=== PATIENT | male | born 1940 | race Caucasian/White ===

== ENCOUNTER 2018-09-18 02:33 | Inpatient (IN) | payer OTHER ==
[2018-09-18 03:06] LABS: ADD MAN DIFF? NO
[2018-09-18 03:07] LABS: BASOPHIL # 0.1 10^3/ul (0.0-0.1); BASOPHILS % 0.3 % (0.0-2.0); EOSINOPHILS # 0.2 10^3/ul (0.0-0.5); EOSINOPHILS % 1.1 % (0.0-7.0); HEMATOCRIT 36.8 % (42.0-52.0); HEMOGLOBIN 12.5 g/dl (14.0-18.0); LYMPHOCYTES # 0.9 10^3/ul (0.8-2.9); LYMPHOCYTES % 6.1 % (15.0-51.0); MEAN CORPUSCULAR HEMOGLOBIN 31.9 pg (29.0-33.0); MEAN CORPUSCULAR VOLUME 93.9 fl (82.0-101.0); MEAN PLATELET VOLUME 9.4 fl (7.4-10.4); MONOCYTE # 0.8 10^3/ul (0.3-0.9); MONOCYTES % 5.7 % (0.0-11.0); NEUTROPHIL # 12.8 10^3/ul (1.6-7.5); NEUTROPHILS % 86.3 % (39.0-77.0); PLATELET COUNT 252 10^3/UL (140-415); RED BLOOD COUNT 3.92 10^6/ul (4.70-6.10); RED CELL DISTRIBUTION WIDTH 13.5 % (11.5-14.5)
[2018-09-18 03:07] LABS: WHITE BLOOD COUNT 14.8 10^3/ul (4.8-10.8)
[2018-09-18 03:26] LABS: ALANINE AMINOTRANSFERASE 33 IU/L (13-69); ALBUMIN 4.1 g/dl (3.3-4.9); ALBUMIN/GLOBULIN RATIO 1.51; ALKALINE PHOSPHATASE 79 IU/L (42-121); ANION GAP 11 (5-13); ASPARTATE AMINO TRANSFERASE 29 IU/L (15-46); BLOOD UREA NITROGEN 19 mg/dl (7-20); CALCIUM 9.3 mg/dl (8.4-10.2); CARBON DIOXIDE 27 mmol/L (21-31); CHLORIDE 103 mmol/L (97-110); CREATININE 1.03 mg/dl (0.61-1.24); GLUCOSE 147 mg/dl (70-220); POTASSIUM 3.9 mmol/L (3.5-5.1); SODIUM 141 mmol/L (135-144); TOTAL PROTEIN 6.8 g/dl (6.1-8.1)
[2018-09-18 03:27] LABS: ETHANOL < 10.0 mg/dl (0-0)
[2018-09-18 03:31] LABS: PROTIME 13.3 Sec (11.9-14.9)
[2018-09-18 03:32] LABS: PARTIAL THROMBOPLASTIN TIME 46.5 Sec (23.0-35.0)
[2018-09-18 03:36] LABS: TROPONIN-I < 0.012 ng/ml (0.000-0.120)
[2018-09-18 04:03] LABS: FREE THYROXINE INDEX (Calc) 2.52 ug/ml (0.65-3.89); T3 UPTAKE 37.1 % (23.5-40.5); T4 (THYROXINE) 6.8 ug/dl (5.5-11.0)
[2018-09-18 04:04] LABS: ADD UMIC YES; UR ASCORBIC ACID NEGATIVE (NEGATIVE); UR BILIRUBIN (Dip) NEGATIVE (NEGATIVE); UR BLOOD (Dip) 1+ mg/dL (NEGATIVE); UR CLARITY CLEAR (CLEAR); UR COLOR STRAW (YELLOW); UR GLUCOSE (Dip) NEGATIVE (NEGATIVE); UR KETONES (Dip) TRACE mg/dL (NEGATIVE); UR LEUKOCYTE ESTERASE (Dip) NEGATIVE Leu/ul (NEGATIVE); UR NITRITE (Dip) NEGATIVE (NEGATIVE); UR RBC 8 /HPF (0-5); UR SPECIFIC GRAVITY (Dip) 1.009 (1.003-1.030); UR TOTAL PROTEIN (Dip) NEGATIVE (NEGATIVE); UR UROBILINOGEN (Dip) NEGATIVE (NEGATIVE); UR WBC 2 /HPF (0-5)
[2018-09-18 04:15] LABS: AMPHETAMINE/METHAMPHETAMINE Negative (NEGATIVE); BARBITURATES Negative (NEGATIVE); BENZODIAZEPINES Negative (NEGATIVE); CANNABINOIDS Negative (NEGATIVE); COCAINE Negative (NEGATIVE); OPIATES Negative (NEGATIVE)
[2018-09-18] MEDS: niCARdipine-NS 0.1MG/ML DRIP 200 ML IV ×2 (04:29→13:02)
[2018-09-18] MEDS ORDERED: SOD CHLORIDE 0.9% 1,000 ML IV (04:31)
[2018-09-18 04:54] LABS: CHOL/HDL RATIO 2.2 RATIO; HDL CHOLESTEROL 55 mg/dl (31-75); LDL CHOLESTEROL,CALCULATED 59 mg/dl; TRIGLYCERIDES 55 mg/dl (0-149)
[2018-09-18 04:54] LABS: CHOLESTEROL 125 mg/dl (100-200)
[2018-09-18 04:57] LABS: HEMOGLOBIN A1C 5.2 % (0-5.9)
[2018-09-18] MEDS ORDERED: DOCUSATE SODIUM 100 MG CAP PO (05:00)
[2018-09-18] MEDS ORDERED: IPRATROPIUM (NEB) 0.5 MG/2.5 ML AMP NEB (05:00)
[2018-09-18] MEDS ORDERED: ONDANSETRON 4 MG INJ IV ×2 (05:00→08:00)
[2018-09-18] MEDS ORDERED: ALBUTEROL 0.083% (NEB) 2.5 MG/3 ML AMP NEB (05:00)
[2018-09-18] MEDS ORDERED: BISACODYL (EC) 5 MG TAB PO (05:00)
[2018-09-18] MEDS ORDERED: ACETAMINOPHEN 650MG/20.3ML CUP PO (05:00)
[2018-09-18] MEDS: ROCURONIUM BROMIDE 10 MG/ML VIAL IV (06:58)
[2018-09-18] MEDS: ETOMIDATE 20 MG INJ IV (06:58)
[2018-09-18] MEDS ORDERED: MANNITOL 25% 50 ML INJ IV* ×3 (07:00→07:30)
[2018-09-18] MEDS ORDERED: ROCURONIUM 50 MG INJ ×3 (07:00→09:07)
[2018-09-18] MEDS: niCARdipine 25 MG in SOD CHLORIDE 0.9% 240 ML IV ×4 (07:16→18:44)
[2018-09-18] MEDS: MANNITOL 20% 250 ML IV (07:16)
[2018-09-18] MEDS: LIDOCAINE 1%/EPI 30 ML INJ ×2 (07:43→09:11)
[2018-09-18] MEDS: THROMBIN 5000 UNIT VIAL (07:43)
[2018-09-18] MEDS: GELATIN SIZE 100 SPONGE (07:43)
[2018-09-18] MEDS: POLYMYXIN/BACITRACIN 1L IRRIG (07:43)
[2018-09-18] MEDS ORDERED: IPRATROPIUM (NEB) 0.5 MG/2.5 ML AMP HHN (08:00)
[2018-09-18] MEDS ORDERED: MIDAZOLAM 1 MG/ML 2 ML INJ IV (08:00)
[2018-09-18] MEDS ORDERED: HYDROmorphONE 0.5 MG/0.5 ML SYG IV ×3 (08:00)
[2018-09-18] MEDS ORDERED: LORAZEPAM 2 MG INJ IV (08:00)
[2018-09-18] MEDS ORDERED: LABETALOL HCL 20MG INJ IV (08:00)
[2018-09-18] MEDS ORDERED: FENTAnyl 50 MCG/ML VIAL IV ×2 (08:00)
[2018-09-18] MEDS ORDERED: hydrALAzine 20 MG INJ IV (08:00)
[2018-09-18] MEDS ORDERED: LEVALBUTEROL (NEB) 1.25 MG/0.5 ML AMP HHN (08:00)
[2018-09-18] MEDS ORDERED: DIPHENHYDRAMINE 50 MG INJ IV (08:00)
[2018-09-18 09:05] LABS: IMMEDIATE SPIN CROSSMATCH 1
[2018-09-18] MEDS ORDERED: PHENYLephrine (100 MCG/ML) 5ML SYG (09:13)
[2018-09-18 09:16] LABS: IMMEDIATE SPIN CROSSMATCH 1 4
[2018-09-18] MEDS ORDERED: DILTIAZEM-D5W 125MG/125ML DRIP 125 ML IV (09:30)
[2018-09-18] MEDS ORDERED: CEFAZOLIN 1 GM INJ (09:47)
[2018-09-18 10:29] LABS: TYPE AND SCREEN 1
[2018-09-18] MEDS ORDERED: BACITRACIN/POLYMYXIN 28.35 GM OINT TOP (11:25)
[2018-09-18] MEDS ORDERED: HYDROCODONE/APAP (5/325) TAB PO (12:30)
[2018-09-18] MEDS ORDERED: NALOXONE (0.4 MG/ML) INJ IV (12:30)
[2018-09-18 13:44] LABS: ADD MAN DIFF? NO
[2018-09-18 13:49] LABS: BASOPHILS % 0.2 % (0.0-2.0); HEMATOCRIT 32.9 % (42.0-52.0); HEMOGLOBIN 11.2 g/dl (14.0-18.0); LYMPHOCYTES % 5.8 % (15.0-51.0); MEAN PLATELET VOLUME 9.6 fl (7.4-10.4); MONOCYTE # 1.4 10^3/ul (0.3-0.9); MONOCYTES % 8.1 % (0.0-11.0); NEUTROPHIL # 14.8 10^3/ul (1.6-7.5); NEUTROPHILS % 85.4 % (39.0-77.0); PLATELET COUNT 257 10^3/UL (140-415); RED CELL DISTRIBUTION WIDTH 13.8 % (11.5-14.5)
[2018-09-18 13:49] LABS: WHITE BLOOD COUNT 17.3 10^3/ul (4.8-10.8)
[2018-09-18] MEDS: PANTOPRAZOLE 40 MG INJ IV (13:58)
[2018-09-18] MEDS: CEFAZOLIN 1 GM/50 ML (PMX) 50 ML IVPB ×2 (13:59→20:31)
[2018-09-18] MEDS: NEOMYC/POLYMYX/BACIT 30 GM OINT TOP ×2 (14:00→20:32)
[2018-09-18] MEDS: ARTIFICIAL TEARS 15 ML OPH BOTH EYES ×3 (14:00→20:31)
[2018-09-18] MEDS: OCULAR LUBRICANT 3.5 GM OPH OINT BOTH EYES ×2 (14:00→17:08)
[2018-09-18] MEDS: SOD CHLORIDE 0.9% 1,000 ML IV (14:01)
[2018-09-18 14:06] LABS: INR 1.04; PROTIME 13.7 Sec (11.9-14.9); PT RATIO 1.1
[2018-09-18 14:07] LABS: PARTIAL THROMBOPLASTIN TIME 36.5 Sec (23.0-35.0)
[2018-09-18 14:19] LABS: ANION GAP 7 (5-13); BLOOD UREA NITROGEN 18 mg/dl (7-20); CALCIUM 9.4 mg/dl (8.4-10.2); CARBON DIOXIDE 26 mmol/L (21-31); CHLORIDE 106 mmol/L (97-110); CREATININE 0.88 mg/dl (0.61-1.24); GLUCOSE 168 mg/dl (70-220); POTASSIUM 4.2 mmol/L (3.5-5.1); SODIUM 139 mmol/L (135-144)
[2018-09-18 16:00] LABS: AADO2 Arterial 161.2 mmHg (7.0-24.0); Arterial Base Excess -3.7 mmol/L (-3.0-3); Arterial Blood Gas Oxygen Sat 98.4 mmHG (95.0-100.0); Arterial COHb 0.3 % (0.0-3.0); Arterial HCO3 20.4 mmol/L (22.0-26.0); Arterial MetHb 0.1 % (0.0-1.5); Arterial pCO2 33.3 mmhg (35-45); Site A-Line
[2018-09-18 16:04] LABS: MODE VENT - AC
[2018-09-18] MEDS ORDERED: PROPOFOL 100 ML (16:36)
[2018-09-18] MEDS: PROPOFOL 100 ML IV (16:42)
[2018-09-18] MEDS: NACL 3% 150 ML IV (17:15)
[2018-09-18] MEDS: NACL 3% 500 ML IV ×3 (17:38→21:31)
[2018-09-18 19:14] LABS: ANION GAP 8 (5-13); BLOOD UREA NITROGEN 20 mg/dl (7-20); CALCIUM 8.7 mg/dl (8.4-10.2); CARBON DIOXIDE 24 mmol/L (21-31); CHLORIDE 111 mmol/L (97-110); CREATININE 0.99 mg/dl (0.61-1.24); GLUCOSE 126 mg/dl (70-220); POTASSIUM 3.6 mmol/L (3.5-5.1); SODIUM 143 mmol/L (135-144)
[2018-09-18] MEDS ORDERED: NACL 3% 500 ML IV (20:30)
[2018-09-18] MEDS: LEVETIRACETAM 500 MG (PMX) 100 ML IVPB (20:30)
[2018-09-18] MEDS: ACETAMINOPHEN 1000MG/100ML IV 100 ML IVPB (20:31)
[2018-09-19] MEDS: OCULAR LUBRICANT 3.5 GM OPH OINT BOTH EYES ×5 (00:29→23:08)
[2018-09-19 02:09] LABS: ANION GAP 7 (5-13); BLOOD UREA NITROGEN 21 mg/dl (7-20); CALCIUM 8.8 mg/dl (8.4-10.2); CARBON DIOXIDE 24 mmol/L (21-31); CHLORIDE 115 mmol/L (97-110); CREATININE 0.99 mg/dl (0.61-1.24); GLUCOSE 137 mg/dl (70-220); POTASSIUM 3.5 mmol/L (3.5-5.1); SODIUM 146 mmol/L (135-144)
[2018-09-19] MEDS: NACL 3% 500 ML IV (04:27)
[2018-09-19] MEDS: CEFAZOLIN 1 GM/50 ML (PMX) 50 ML IVPB (04:29)
[2018-09-19] MEDS: PROPOFOL 100 ML IV (04:30)
[2018-09-19] MEDS ORDERED: LORAZEPAM 2 MG INJ IM (05:00)
[2018-09-19 05:01] LABS: ADD MAN DIFF? NO
[2018-09-19 05:03] LABS: WHITE BLOOD COUNT 15.6 10^3/ul (4.8-10.8)
[2018-09-19 05:03] LABS: ABNORMAL IP MESSAGE 1; BASOPHILS % 0.2 % (0.0-2.0); HEMATOCRIT 29.2 % (42.0-52.0); HEMOGLOBIN 9.9 g/dl (14.0-18.0); LYMPHOCYTES # 0.7 10^3/ul (0.8-2.9); LYMPHOCYTES % 4.5 % (15.0-51.0); MEAN CORPUSCULAR HEMOGLOBIN 31.8 pg (29.0-33.0); MEAN CORPUSCULAR HGB CONC 33.9 g/dl (32.0-37.0); MEAN CORPUSCULAR VOLUME 93.9 fl (82.0-101.0); MEAN PLATELET VOLUME 10.2 fl (7.4-10.4); MONOCYTE # 1.5 10^3/ul (0.3-0.9); MONOCYTES % 9.8 % (0.0-11.0); NEUTROPHIL # 13.2 10^3/ul (1.6-7.5); PLATELET COUNT 245 10^3/UL (140-415); POSITIVE DIFF @See below; RED BLOOD COUNT 3.11 10^6/ul (4.70-6.10); RED CELL DISTRIBUTION WIDTH 14.7 % (11.5-14.5)
[2018-09-19] MEDS: PANTOPRAZOLE 40 MG INJ IV (05:15)
[2018-09-19 05:41] LABS: ALBUMIN 3.3 g/dl (3.3-4.9); ANION GAP 7 (5-13); BLOOD UREA NITROGEN 19 mg/dl (7-20); CALCIUM 8.9 mg/dl (8.4-10.2); CARBON DIOXIDE 23 mmol/L (21-31); CHLORIDE 121 mmol/L (97-110); CREATININE 0.94 mg/dl (0.61-1.24); GLUCOSE 144 mg/dl (70-220); MAGNESIUM 2.1 mg/dl (1.7-2.5); POTASSIUM 3.6 mmol/L (3.5-5.1); SODIUM 151 mmol/L (135-144)
[2018-09-19] MEDS: niCARdipine 25 MG in SOD CHLORIDE 0.9% 240 ML IV ×5 (07:17→21:26)
[2018-09-19 08:52] LABS: AADO2 Arterial 136.9 mmHg (7.0-24.0); Arterial Base Excess -2.6 mmol/L (-3.0-3); Arterial Blood Gas Oxygen Sat 97.8 mmHG (95.0-100.0); Arterial COHb 0.4 % (0.0-3.0); Arterial Fraction of Oxyhgb 96.5 % (93.0-99.0); Arterial HCO3 19.9 mmol/L (22.0-26.0); Arterial MetHb 0.9 % (0.0-1.5); Arterial pCO2 28.4 mmhg (35-45); MODE VENT - AC; Site A-Line
[2018-09-19] MEDS ORDERED: FENTAnyl (DRIP) 1000 mcg/100mL 100 ML IV (10:00)
[2018-09-19] MEDS: NS + KCL 20 MEQ 1,000 ML IV (10:03)
[2018-09-19] MEDS: LEVETIRACETAM 500 MG (PMX) 100 ML IVPB ×2 (10:17→20:45)
[2018-09-19] MEDS: POTASSIUM PHOSPHATE 30 MM in SOD CHLORIDE 0.9% 250 ML IVPB (10:23)
[2018-09-19] MEDS: ARTIFICIAL TEARS 15 ML OPH BOTH EYES ×4 (10:32→20:29)
[2018-09-19] MEDS: NEOMYC/POLYMYX/BACIT 30 GM OINT TOP ×3 (10:32→20:29)
[2018-09-19] MEDS: CEFEPIME 1GM/50 ML (PMX) 50 ML IVPB ×2 (11:07→20:29)
[2018-09-19] MEDS: ACETAMINOPHEN 1000MG/100ML IV 100 ML IVPB ×2 (13:33→20:45)
[2018-09-19 13:55] LABS: ANION GAP 8 (5-13); BLOOD UREA NITROGEN 21 mg/dl (7-20); CARBON DIOXIDE 23 mmol/L (21-31); CHLORIDE 119 mmol/L (97-110); CREATININE 0.94 mg/dl (0.61-1.24); GLUCOSE 131 mg/dl (70-220); POTASSIUM 3.6 mmol/L (3.5-5.1); SODIUM 150 mmol/L (135-144)
[2018-09-19 19:36] LABS: ANION GAP 7 (5-13); BLOOD UREA NITROGEN 22 mg/dl (7-20); CALCIUM 8.3 mg/dl (8.4-10.2); CARBON DIOXIDE 21 mmol/L (21-31); CHLORIDE 124 mmol/L (97-110); CREATININE 0.87 mg/dl (0.61-1.24); GLUCOSE 130 mg/dl (70-220); SODIUM 152 mmol/L (135-144)
[2018-09-19 19:41] LABS: POTASSIUM 3.3 mmol/L (3.5-5.1)
[2018-09-19] MEDS: POTASSIUM CHLORIDE 40 MEQ in SOD CHLORIDE 0.45% 1,000 ML IV (23:07)
[2018-09-20] MEDS: niCARdipine 25 MG in SOD CHLORIDE 0.9% 240 ML IV ×6 (00:08→13:01)
[2018-09-20] MEDS: ACETAMINOPHEN 1000MG/100ML IV 100 ML IVPB (02:32)
[2018-09-20 05:19] LABS: ADD MAN DIFF? NO
[2018-09-20 05:26] LABS: WHITE BLOOD COUNT 18.4 10^3/ul (4.8-10.8)
[2018-09-20 05:26] LABS: ABNORMAL IP MESSAGE 1; BASOPHILS % 0.2 % (0.0-2.0); HEMATOCRIT 28.5 % (42.0-52.0); HEMOGLOBIN 9.5 g/dl (14.0-18.0); LYMPHOCYTES % 5.6 % (15.0-51.0); MEAN CORPUSCULAR HEMOGLOBIN 32.1 pg (29.0-33.0); MEAN CORPUSCULAR HGB CONC 33.3 g/dl (32.0-37.0); MEAN CORPUSCULAR VOLUME 96.3 fl (82.0-101.0); MEAN PLATELET VOLUME 10.2 fl (7.4-10.4); MONOCYTE # 1.8 10^3/ul (0.3-0.9); MONOCYTES % 9.8 % (0.0-11.0); NEUTROPHIL # 15.5 10^3/ul (1.6-7.5); PLATELET COUNT 238 10^3/UL (140-415); POSITIVE DIFF @See below; RED BLOOD COUNT 2.96 10^6/ul (4.70-6.10); RED CELL DISTRIBUTION WIDTH 14.7 % (11.5-14.5)
[2018-09-20] MEDS: OCULAR LUBRICANT 3.5 GM OPH OINT BOTH EYES ×4 (05:32→23:58)
[2018-09-20] MEDS: PANTOPRAZOLE 40 MG INJ IV (05:32)
[2018-09-20 05:53] LABS: ANION GAP 6 (5-13); BLOOD UREA NITROGEN 28 mg/dl (7-20); CALCIUM 8.6 mg/dl (8.4-10.2); CARBON DIOXIDE 23 mmol/L (21-31); CHLORIDE 124 mmol/L (97-110); CREATININE 0.94 mg/dl (0.61-1.24); GLUCOSE 134 mg/dl (70-220); POTASSIUM 3.2 mmol/L (3.5-5.1); SODIUM 153 mmol/L (135-144)
[2018-09-20 06:16] LABS: MAGNESIUM 2.3 mg/dl (1.7-2.5)
[2018-09-20 07:19] LABS: AADO2 Arterial 119.1 mmHg (7.0-24.0); Arterial Base Excess -2.6 mmol/L (-3.0-3); Arterial COHb 0.2 % (0.0-3.0); Arterial Fraction of Oxyhgb 97.7 % (93.0-99.0); Arterial HCO3 19.9 mmol/L (22.0-26.0); Arterial MetHb 0.1 % (0.0-1.5); MODE VENT - AC; Site A-Line
[2018-09-20] MEDS: MANNITOL 20% 250 ML IV (07:32)
[2018-09-20] MEDS: LEVETIRACETAM 500 MG (PMX) 100 ML IVPB ×2 (08:16→20:26)
[2018-09-20] MEDS: ARTIFICIAL TEARS 15 ML OPH BOTH EYES ×4 (08:17→19:57)
[2018-09-20] MEDS: NEOMYC/POLYMYX/BACIT 30 GM OINT TOP ×3 (08:17→19:57)
[2018-09-20] MEDS: CEFEPIME 1GM/50 ML (PMX) 50 ML IVPB ×2 (08:17→19:56)
[2018-09-20] MEDS ORDERED: POTASSIUM CHLORIDE 100 ML IVPB (09:30)
[2018-09-20] MEDS: POTASSIUM CHLORIDE 40 MEQ in SOD CHLORIDE 0.45% 1,000 ML IV ×2 (13:01→23:58)
[2018-09-20] MEDS: niCARdipine 50 MG in SOD CHLORIDE 0.9% 480 ML IV ×2 (15:41→20:25)
[2018-09-20] MEDS: HYDROmorphONE 0.5 MG/0.5 ML SYG IV (15:53)
[2018-09-20 19:36] LABS: AADO2 Arterial 139.4 mmHg (7.0-24.0); Arterial Base Excess -4.4 mmol/L (-3.0-3); Arterial Blood Gas Oxygen Sat 98.1 mmHG (95.0-100.0); Arterial COHb 0.3 % (0.0-3.0); Arterial Fraction of Oxyhgb 97.5 % (93.0-99.0); Arterial MetHb 0.3 % (0.0-1.5); Arterial pCO2 23.7 mmhg (35-45); MODE VENT - AC; Site A-Line
[2018-09-20] MEDS: PROPOFOL 100 ML IV (19:56)
[2018-09-20 19:59] LABS: ANION GAP 7 (5-13); BLOOD UREA NITROGEN 30 mg/dl (7-20); CALCIUM 8.4 mg/dl (8.4-10.2); CARBON DIOXIDE 21 mmol/L (21-31); CHLORIDE 125 mmol/L (97-110); CREATININE 0.92 mg/dl (0.61-1.24); GLUCOSE 135 mg/dl (70-220); POTASSIUM 3.2 mmol/L (3.5-5.1); SODIUM 153 mmol/L (135-144)
[2018-09-21] MEDS: POTASSIUM CHLORIDE 40 MEQ in SOD CHLORIDE 0.45% 1,000 ML IV (00:50)
[2018-09-21 00:56] LABS: ANION GAP 6 (5-13); BLOOD UREA NITROGEN 32 mg/dl (7-20); CALCIUM 8.3 mg/dl (8.4-10.2); CARBON DIOXIDE 23 mmol/L (21-31); CHLORIDE 124 mmol/L (97-110); CREATININE 0.95 mg/dl (0.61-1.24); GLUCOSE 130 mg/dl (70-220); POTASSIUM 3.3 mmol/L (3.5-5.1); SODIUM 153 mmol/L (135-144)
[2018-09-21] MEDS: niCARdipine 50 MG in SOD CHLORIDE 0.9% 480 ML IV (01:44)
[2018-09-21] MEDS: PROPOFOL 100 ML IV ×3 (02:37→17:39)
[2018-09-21 05:27] LABS: ADD MAN DIFF? NO
[2018-09-21 05:34] LABS: ABNORMAL IP MESSAGE 1; BASOPHILS % 0.3 % (0.0-2.0); EOSINOPHILS % 0.1 % (0.0-7.0); HEMATOCRIT 26.3 % (42.0-52.0); HEMOGLOBIN 8.6 g/dl (14.0-18.0); LYMPHOCYTES # 1.3 10^3/ul (0.8-2.9); LYMPHOCYTES % 8.2 % (15.0-51.0); MEAN CORPUSCULAR HEMOGLOBIN 31.6 pg (29.0-33.0); MEAN CORPUSCULAR HGB CONC 32.7 g/dl (32.0-37.0); MEAN CORPUSCULAR VOLUME 96.7 fl (82.0-101.0); MEAN PLATELET VOLUME 10.2 fl (7.4-10.4); MONOCYTE # 1.7 10^3/ul (0.3-0.9); MONOCYTES % 10.9 % (0.0-11.0); NEUTROPHIL # 12.2 10^3/ul (1.6-7.5); PLATELET COUNT 210 10^3/UL (140-415); POSITIVE DIFF @See below; RED BLOOD COUNT 2.72 10^6/ul (4.70-6.10); RED CELL DISTRIBUTION WIDTH 14.6 % (11.5-14.5)
[2018-09-21 05:34] LABS: WHITE BLOOD COUNT 15.3 10^3/ul (4.8-10.8)
[2018-09-21 05:37] LABS: LACTIC ACID 1.1 mmol/L (0.5-2.0)
[2018-09-21 05:37] LABS: AMMONIA 12 umol/l (9-30)
[2018-09-21] MEDS: PANTOPRAZOLE 40 MG INJ IV (05:41)
[2018-09-21] MEDS: OCULAR LUBRICANT 3.5 GM OPH OINT BOTH EYES ×3 (05:42→17:07)
[2018-09-21 06:16] LABS: MAGNESIUM 2.5 mg/dl (1.7-2.5)
[2018-09-21 06:20] LABS: ALANINE AMINOTRANSFERASE 40 IU/L (13-69); ALBUMIN 2.7 g/dl (3.3-4.9); ALBUMIN/GLOBULIN RATIO 1.12; ALKALINE PHOSPHATASE 47 IU/L (42-121); ASPARTATE AMINO TRANSFERASE 83 IU/L (15-46); BLOOD UREA NITROGEN 32 mg/dl (7-20); CALCIUM 8.3 mg/dl (8.4-10.2); CARBON DIOXIDE 22 mmol/L (21-31); CREATININE 0.94 mg/dl (0.61-1.24); GLUCOSE 125 mg/dl (70-220); TOTAL PROTEIN 5.1 g/dl (6.1-8.1)
[2018-09-21 07:06] LABS: ANION GAP 7 (5-13); POTASSIUM 3.5 mmol/L (3.5-5.1)
[2018-09-21 07:10] LABS: CHLORIDE 125 mmol/L (97-110); SODIUM 154 mmol/L (135-144)
[2018-09-21 08:02] LABS: AADO2 Arterial 130.2 mmHg (7.0-24.0); Arterial Base Excess -2.2 mmol/L (-3.0-3); Arterial Blood Gas Oxygen Sat 98.1 mmHG (95.0-100.0); Arterial COHb 0.3 % (0.0-3.0); Arterial Fraction of Oxyhgb 97.7 % (93.0-99.0); Arterial HCO3 20.3 mmol/L (22.0-26.0); Arterial MetHb 0.1 % (0.0-1.5); Arterial pCO2 27.5 mmhg (35-45); MODE VENT - AC; Site A-Line
[2018-09-21] MEDS: POTASSIUM CHLORIDE 40 MEQ in DEXTROSE 5%-0.225% NACL 1,000 ML IV (08:26)
[2018-09-21] MEDS: LEVETIRACETAM 500 MG (PMX) 100 ML IVPB (08:46)
[2018-09-21] MEDS: ARTIFICIAL TEARS 15 ML OPH BOTH EYES ×3 (08:51→17:07)
[2018-09-21] MEDS: NEOMYC/POLYMYX/BACIT 30 GM OINT TOP ×2 (08:51→13:00)
[2018-09-21] MEDS: CEFEPIME 1GM/50 ML (PMX) 50 ML IVPB (09:08)
[2018-09-21 12:37] LABS: ANION GAP 6 (5-13); BLOOD UREA NITROGEN 30 mg/dl (7-20); CALCIUM 8.4 mg/dl (8.4-10.2); CARBON DIOXIDE 24 mmol/L (21-31); CHLORIDE 122 mmol/L (97-110); GLUCOSE 126 mg/dl (70-220); POTASSIUM 3.3 mmol/L (3.5-5.1); SODIUM 152 mmol/L (135-144)
[2018-09-21] MEDS: POTASSIUM CHLORIDE 100 ML IVPB ×3 (13:38→18:37)
[2018-09-21 19:06] LABS: ANION GAP 4 (5-13); BLOOD UREA NITROGEN 30 mg/dl (7-20); CALCIUM 8.2 mg/dl (8.4-10.2); CARBON DIOXIDE 25 mmol/L (21-31); CHLORIDE 126 mmol/L (97-110); CREATININE 0.83 mg/dl (0.61-1.24); GLUCOSE 121 mg/dl (70-220); POTASSIUM 3.9 mmol/L (3.5-5.1); SODIUM 155 mmol/L (135-144)
[2018-09-21] MEDS: morphine (DRIP) 100 MG/100 ML 100 ML IV (20:33)
[2018-09-21] MEDS ORDERED: LORAZEPAM 2 MG INJ IV (22:00)
[2018-09-21] MEDS ORDERED: ATROPINE 1% 5 ML OPH SL (22:00)
== END 2018-09-21 22:35 | disposition expired | DRG 25 ==
LOC: E/R 02:33 → ICU 04:26
PROC: 00N00ZZ Release Brain, Open Approach (ICD-10-PCS; principal; 2018-09-18 07:50)
PROC: 009 Central Nervous System and Cranial Nerves, Drainage (ICD-10-PCS; 2018-09-18 07:50)
PROC: 0BH17EZ Insertion of Endotracheal Airway into Trachea, Via Natural or Artificial Opening (ICD-10-PCS; 2018-09-18 07:50)
PROC: 5A1945Z Respiratory Ventilation, 24-96 Consecutive Hours (ICD-10-PCS; 2018-09-18 07:50)
PROC: 30233K1 Transfusion of Nonautologous Frozen Plasma into Peripheral Vein, Percutaneous Approach (ICD-10-PCS; 2018-09-18 07:50)
PROC: 30233N1 Transfusion of Nonautologous Red Blood Cells into Peripheral Vein, Percutaneous Approach (ICD-10-PCS; 2018-09-18 07:50)
PROC: 6A550Z2 Pheresis of Platelets, Single (ICD-10-PCS; 2018-09-18 07:50)
DX: S06.5X0A Traumatic subdural hemorrhage without loss of consciousness, initial encounter (principal); G93.5 Compression of brain; G93.40 Encephalopathy, unspecified; D50.0 Iron deficiency anemia secondary to blood loss (chronic); Z66 Do not resuscitate; Z51.5 Encounter for palliative care; E78.5 Hyperlipidemia, unspecified; F32.9 Major depressive disorder, single episode, unspecified; I25.10 Atherosclerotic heart disease of native coronary artery without angina pectoris; I11.0 Hypertensive heart disease with heart failure; I50.9 Heart failure, unspecified; I73.9 Peripheral vascular disease, unspecified; Z86.73 Personal history of transient ischemic attack (TIA), and cerebral infarction without residual deficits; E78.00 Pure hypercholesterolemia, unspecified; W10.9XXA Fall (on) (from) unspecified stairs and steps, initial encounter; Z87.891 Personal history of nicotine dependence; R50.9 Fever, unspecified; R40.20 Unspecified coma; D72.829 Elevated white blood cell count, unspecified; I46.9 Cardiac arrest, cause unspecified; R09.02 Hypoxemia
CPT/HCPCS: 31500; 36415; 36430; 36600; 70450; 71045; 80048; 80053; 80061; 80069; 80307; 81001; 82140; 82803; 82962; 83036; 83605; 83735; 84436; 84443; 84479; 84484; 85025; 85610; 85730; 86644; 86850; 86900; 86901; 86920; 87040; 87081; 87086; 88304; 93005; 94002; 94003; 94770; 95819; 99291-25